=== PATIENT | male | born 1985 | race Caucasian/White ===

== ENCOUNTER → 2018-02-04 | Emergency (ER) | payer OTHER ==
[~2018-02-04] VITALS: Ht 165.1 cm; Wt 90.7 kg
[~2018-02-04] MED LIST: AK-CON15 ML OP; DOLOGESIC CAPLE1 TAB PO; GILTUSS TR TAB1 EACH PO
== END | disposition left against medical advice (07) ==
LOC: ER 00:24
DX: Z53.20 Procedure and treatment not carried out because of patient's decision for unspecified reasons (principal)

== ENCOUNTER 2019-03-08 22:21 | Emergency (ER) | payer OTHER ==
[~2019-03-08] VITALS: Ht 165.1 cm; Wt 77.1 kg
[2019-03-08] MEDS ORDERED: ADVIL (23:17)
== END 2019-03-09 00:28 | disposition home or self-care (01) ==
LOC: ER 22:21
DX: R07.89 Other chest pain (principal)

== ENCOUNTER 2019-03-23 23:34 | Emergency (ER) | payer OTHER ==
[~2019-03-23] VITALS: Ht 165.1 cm; Wt 95.3 kg
[~2019-03-23 23:34] MED LIST changes: +ADVIL
[2019-03-23] MEDS ORDERED: CLONAZEPAM2 MG (23:55)
[2019-03-24] MEDS ORDERED: ALLEGRA ALLERG180 MG PO (02:23)
[2019-03-24] MEDS ORDERED: FLONASE16 GM NASAL (02:23)
[2019-03-24] MEDS ORDERED: ZITHROMAX500 MG PO (02:23)
== END 2019-03-24 02:42 | disposition home or self-care (01) ==
LOC: ER 23:34
DX: J06.9 Acute upper respiratory infection, unspecified (principal)